=== PATIENT | male | born 1990 | race Caucasian/White ===

== ENCOUNTER 2016-10-27 21:37 | Emergency (ER) | payer OTHER ==
[~2016-10-27] VITALS: Ht 170.2 cm; Wt 49.0 kg
[2016-10-27 21:44] VITALS: TEMP 37; Ht 170.2 cm; Wt 49.0 kg
[2016-10-27] MEDS ORDERED: XYLOCAINE 1%/SOD BICARB 20 ML VIAL INFIL ONE (22:00)
[2016-10-27] MEDS ORDERED: METH2.5T PO (22:05)
--- NOTE | 2016-10-27 22:35 | DIAGNOSTIC IMAGING REPORT ---
CT HEAD WITHOUT CONTRAST (CT) CLINICAL HISTORY: Head pain status post trauma COMPARISON STUDY: No previous studies for comparison. TECHNIQUE: Axial CT of the brain is performed from the vertex to the skull base. IV contrast was not administered for this examination. CT DOSE: 537.48 mGy.cm FINDINGS: No intra or extra-axial mass lesions are visualized. There is no CT evidence of acute cortical infarction. There is no evidence of midline shift. There is no acute hemorrhage. No calvarial fractures are visualized. There is a right parietal vertex scalp laceration. There is no evidence of pathologic ventricular dilatation. There is no evidence of acute sinusitis IMPRESSION: Scalp laceration. No acute intracranial findings. Electronically signed by: Robert Ojeda M.D. 10/27/2016 10:34 PM Dictated Date/Time: 10/27/2016 10:32 PM
--- NOTE | 2016-10-27 23:05 | EMERGENCY ROOM VISIT NOTE ---
ED Visit Note First contact with patient: 21:51 CHIEF COMPLAINT: Scalp laceration HISTORY OF PRESENT ILLNESS: This 26-year-old male patient presents emergency department the BLS from [facility] after a head injury. The patient reports that a metal plate fell approximately 50 feet and struck the top of his head. He states that the medical provider at [facility] was going to staple his head, but sent him here because it felt soft. He was given 1 g of Tylenol and the area was numbed with lidocaine prior to arrival here. He complains of headache , dizziness and slight lethargy. He rates his discomfort a 4/10. There was no loss of consciousness at the time of the injury. He denies any nausea, vomiting , blurred vision, confusion, or slurred speech. The patient's tetanus shot is up to date. REVIEW OF SYSTEMS: A 6 system review of systems was completed with positives and pertinent negatives listed in the HPI. ALLERGIES: No known drug allergies MEDICATIONS: Methotrexate PMH: No significant past medical history. SOCIAL HISTORY: The patient is a prisoner at [facility] PHYSICAL EXAM: Vital Signs: Reviewed Nurse's notes, vital signs stable. GENERAL : This is a 26-year-old male, in no acute distress, well-developed, well- nourished. NEURO: Patient was alert and oriented to person place and time. Sensory and motor functions grossly intact. No focal neurologic deficits. Normal sensation to light and sharp touch. EYES: PERRLA. EOMI. Fundoscopic exam without hemorrhages or papilledema. EARS: No hemotympanum. No hernandez sign or mastoid tenderness. SKIN: There is a 2.5 cm laceration on the right occipital aspect of the scalp whose edges are gaping apart. There is a 1.5 cm laceration adjacent to the first laceration. There is minimal active bleeding. The wound is clean and there are no deep structures present. NECK: Supple, cervical spine nontender to palpation. RADIOGRAPHIC FINDINGS: CT HEAD WITHOUT CONTRAST (CT) FINDINGS: No intra or extra-axial mass lesions are visualized. There is no CT evidence of acute cortical infarction. There is no evidence of midline shift. There is no acute hemorrhage. No calvarial fractures are visualized. There is a right parietal vertex scalp laceration. There is no evidence of pathologic ventricular dilatation. There is no evidence of acute sinusitis IMPRESSION: Scalp laceration. No acute intracranial findings. EMERGENCY DEPARTMENT COURSE: I examined the patient. CT of the head was performed and read by radiology with no acute findings. Verbal consent was obtained to perform the procedure. Using sterile technique the wound was cleaned with Betadine. The area was sterilely draped. 3 ml of 1% buffered lidocaine was used to anesthetize the patient's scalp. Once the patient was numb, the wound was copiously irrigated under pressure with sterile saline. The wound was explored and there were no deep structures present. The lacerations were repaired using a total of 7 melvin with the wound edges being well approximated. The patient tolerated the procedure well. The bleeding stopped. The area was cleaned with sterile saline and dressed with bacitracin ointment. The patient was discharged in good condition. DIAGNOSIS: Scalp laceration, closed head injury Current/Historical Medications Scheduled Methotrexate (Methotrexate), 12.5 MG PO WK Vital Signs Date Time Temp Pulse Resp B/P Pulse Ox O2 Delivery O2 Flow Rate FiO2 10/27/16 23:12 63 16 143/84 98 Room Air 10/27/16 21:44 16 97 10/27/16 21:44 37.0 54 16 131/83 97 Room Air Departure Information Impression Primary Impression: Closed head injury Additional Impression: Scalp laceration Dispostion Home / Self-Care Condition GOOD Referrals Silvia SALDANA (PCP) Patient Instructions My [facility] Additional Instructions You have received 7 melvin on your scalp. These melvin are NOT dissolvable and WILL need to be removed by a health care provider in 10 days. You can return to the Emergency Department or contact your Primary Care Provider to have these melvin removed. Proper wound care is essential for adequate wound healing and infection prevention. You can shower and clean the wound with soap and water. Do scour over the wound, pat dry with a towel. Do not submerse the wound until the melvin have been removed. You can use an antibiotic ointment with a dressing over the wound for the next 3-4 days. After this time you may leave the wound dry and open to the air. If crust develops over the wound you can use a Q-tip to apply a 1:1 peroxide:water solution to clean the wound. Look for signs of infection of the wound including: increased pain, swelling, foul discharge, streaking, or increased temperature. If any of these are noticed you should return to the Emergency Department for further assessment and treatment. As with any laceration you may have received nerve damage to the surrounding tissues. This damage may or may not be permanent. For pain control, you can use the following [id number] medicines (if >12 yo): - Regular strength (325mg/tab) Tylenol (acetaminophen) 2 tabs every 4-6 hours as needed. Do not exceed 12 tablets in a 24 hour period. Avoid taking more than 4 grams (4000 mg) of Tylenol per day. This includes any other sources of acetaminophen you may take on a regular basis. - Regular strength (200 mg/tab) Advil (ibuprofen) 1-2 tabs every 4-6 hours as needed. Do not exceed a dose of 3200 mg per day. Return to the emergency department if your symptoms worsen despite treatment course outlined above. Problem Qualifiers Primary Impression: Closed head injury Encounter type: initial encounter Qualified Codes: S09.90XA - Unspecified injury of head, initial encounter Additional Impression: Scalp laceration Encounter type: initial encounter Qualified Codes: S01.01XA - Laceration without foreign body of scalp, initial encounter
[2016-10-27 23:12] VITALS: BP 143/84; PULSE 63; O2SAT 98
== END 2016-10-27 23:14 ==
LOC: C.EDA 21:41
DX: S01.01XA Laceration without foreign body of scalp, initial encounter (principal); W22.8XXA Striking against or struck by other objects, initial encounter; Z79.899 Other long term (current) drug therapy; Y92.149 Unspecified place in prison as the place of occurrence of the external cause